=== PATIENT | male | born 1960 | race Caucasian/White ===

== ENCOUNTER 2017-04-14 15:45 | Emergency (ER) | payer SELFPAY ==
[~2017-04-14] VITALS: Ht 180.3 cm; Wt 100.0 kg
[2017-04-14 15:46] VITALS: BP 137/82; PULSE 99; RESP 18; TEMP 98.7; O2SAT 99
[2017-04-14] MEDS ORDERED: SODIUM CHLOR 0.9% 1000 ML INJ 1,000 ML IV SCH (19:58)
[2017-04-14] MEDS ORDERED: ONDANSETRON HCL 4 MG/2 ML VIAL IVP ONE (20:00)
[2017-04-14] MEDS ORDERED: MORPHINE SULFATE 8 MG/ML INJ IV PUSH ONE (20:00)
[2017-04-14] MEDS ORDERED: SODIUM CHLORIDE 0.9% FLUSH 10 ML FLUSH IV FLUSH PRN (20:00)
--- NOTE | 2017-04-14 20:08 | PD ---
HPI Chief Complaint: Abdominal Pain Time Seen by Provider: 19:52 Travel History International Travel<30 days: No Contact w/Intl Traveler<30days: No Traveled to known affect area: No History of Present Illness HPI 57-year-old male here for evaluation of left lower quadrant abdominal pain. Patient reports that the pain started yesterday, sharp, constant, worsening since yesterday, moderate to severe in intensity, worse with movement and palpation. He reports feeling feverish yesterday evening. He has had some loose bowel movements. No nausea or vomiting. No history of abdominal surgeries. No urinary symptoms. [facility] Past Medical History Cardiovascular Problems: Yes Hypertension: Yes Social History Alcohol Use: Yes Tobacco Use: No Substance Use: Yes (marijuana) Allergies-Medications (Allergen,Severity, Reaction): Coded Allergies: No Known Allergies (Unverified , 04/14/17) Reported Meds & Prescriptions Reported Meds & Active Scripts Active Flagyl (Metronidazole) 500 Mg Tab 500 Mg PO BID 10 Days Cipro (Ciprofloxacin HCl) 500 Mg Tab 500 Mg PO BID 10 Days Review of Systems Except as stated in HPI: all other systems reviewed are Neg Physical Exam Narrative GENERAL: Well-developed, well-nourished, no apparent distress. SKIN: Focused skin assessment warm/dry. No rash. HEAD: Atraumatic. Normocephalic. EYES: Pupils equal and round. No scleral icterus. No injection or drainage. ENT: Mucous membranes pink and moist. NECK: Trachea midline. No JVD. CARDIOVASCULAR: Regular rate and rhythm. No murmur appreciated. RESPIRATORY: No accessory muscle use. Clear to auscultation. Breath sounds equal bilaterally. GASTROINTESTINAL: Abdomen soft, nondistended. Moderate left lower quadrant tenderness without peritoneal signs. Rest of abdomen is soft and nontender. Normal bowel sounds. No hernias. MUSCULOSKELETAL: No obvious deformities. No clubbing. No cyanosis. No edema. NEUROLOGICAL: Awake and alert. No obvious cranial nerve deficits. Motor grossly within normal limits. Normal speech. PSYCHIATRIC: Appropriate mood and affect; insight and judgment normal. Data Data Last Documented VS Vital Signs Date Time Temp Pulse Resp B/P Pulse Ox O2 Delivery O2 Flow Rate FiO2 04/14/17 15:46 98.7 99 18 137/82 99 Room Air Orders Complete Blood Count With Diff (04/14/17 19:58) Comprehensive Metabolic Panel (04/14/17 19:58) Lipase (04/14/17 19:58) Prothrombin Time / Inr (Pt) (04/14/17 19:58) Act Partial Throm Time (Ptt) (04/14/17 19:58) Urinalysis - C+S If Indicated (04/14/17 19:58) Ct Abd/Pel W Iv Contrast(Rout) (04/14/17 19:58) Iv Access Insert/Monitor (04/14/17 19:58) Ecg Monitoring (04/14/17 19:58) Oximetry (04/14/17 19:58) Ondansetron Inj (Zofran Inj) (04/14/17 20:00) Sodium Chlor 0.9% 1000 Ml Inj (Ns 1000 M (04/14/17 19:58) Sodium Chloride 0.9% Flush (Ns Flush) (04/14/17 20:00) Morphine Inj (Morphine Inj) (04/14/17 20:00) Iohexol 350 Inj (Omnipaque 350 Inj) (04/14/17 21:23) Ciprofloxacin (Cipro) (04/14/17 21:45) Metronidazole (Flagyl) (04/14/17 21:45) Labs Laboratory Tests Test 04/14/17 04/14/17 20:10 20:16 White Blood Count 12.5 TH/MM3 Red Blood Count 4.91 MIL/MM3 Hemoglobin 15.0 GM/DL Hematocrit 44.0 % Mean Corpuscular Volume 89.7 FL Mean Corpuscular Hemoglobin 30.6 PG Mean Corpuscular Hemoglobin 34.1 % Concent Red Cell Distribution Width 13.0 % Platelet Count 222 TH/MM3 Mean Platelet Volume 9.2 FL Neutrophils (%) (Auto) 68.4 % Lymphocytes (%) (Auto) 20.6 % Monocytes (%) (Auto) 9.8 % Eosinophils (%) (Auto) 0.3 % Basophils (%) (Auto) 0.9 % Neutrophils # (Auto) 8.5 TH/MM3 Lymphocytes # (Auto) 2.6 TH/MM3 Monocytes # (Auto) 1.2 TH/MM3 Eosinophils # (Auto) 0.0 TH/MM3 Basophils # (Auto) 0.1 TH/MM3 CBC Comment AUTO DIFF Differential Total Cells 100 Counted Neutrophils % (Manual) 77 % Band Neutrophils % 1 % Lymphocytes % 11 % Monocytes % 8 % Neutrophils # (Manual) 10.1 TH/MM3 Metamyelocytes 1 % Myelocytes 1 % Promyelocytes 1 % Differential Comment FINAL DIFF MANUAL Platelet Estimate NORMAL Platelet Morphology Comment NORMAL Red Cell Morphology Comment NORMAL Prothrombin Time 10.6 SEC Prothromb Time International 1.0 RATIO Ratio Activated Partial 30.3 SEC Thromboplast Time Sodium Level 137 MEQ/L Potassium Level 4.0 MEQ/L Chloride Level 104 MEQ/L Carbon Dioxide Level 27.3 MEQ/L Anion Gap 6 MEQ/L Blood Urea Nitrogen 10 MG/DL Creatinine 1.29 MG/DL Estimat Glomerular Filtration 58 ML/MIN Rate Random Glucose 123 MG/DL Calcium Level 8.9 MG/DL Total Bilirubin 0.6 MG/DL Aspartate Amino Transf 7 U/L (AST/SGOT) Alanine Aminotransferase 24 U/L (ALT/SGPT) Alkaline Phosphatase 64 U/L Total Protein 7.4 GM/DL Albumin 3.2 GM/DL Lipase 99 U/L Urine Color YELLOW Urine Turbidity CLEAR Urine pH 5.5 Urine Specific [place] 1.026 Urine Protein TRACE mg/dL Urine Glucose (UA) NEG mg/dL Urine Ketones NEG mg/dL Urine Occult Blood NEG Urine Nitrite NEG Urine Bilirubin NEG Urine Urobilinogen 2.0 MG/DL Urine Leukocyte Esterase NEG Urine RBC LESS THAN 1 /hpf Urine WBC 2 /hpf Urine Mucus FEW /lpf Microscopic Urinalysis Comment CULT NOT INDICATED MDM Medical Decision Making Medical Screen Exam Complete: Yes Emergency Medical Condition: Yes Differential Diagnosis Diverticulitis, colitis, appendicitis, cystitis, UTI, nephrolithiasis, ureterolithiasis, abscess Narrative Course Vital signs reviewed. CBC is essentially unremarkable. CMP is unremarkable. Lipase 99. UA is not suggestive of UTI. CT abdomen pelvis: CONCLUSION: Prematurely changes descending colon level the iliac crest consistent with diverticulitis without abscess. Patient was made aware of all findings. He is resting comfortably. No peritoneal signs on exam. He was given a dose of oral Cipro and Flagyl and will be treated as an outpatient with these antibiotics. He is stable for outpatient treatment and follow-up with a primary care physician this week. He was informed on when to return to the emergency department. He verbalizes understanding and agreement with plan. Diagnosis Primary Impression: Diverticulitis Qualified Code: K57.32 - Diverticulitis of large intestine without perforation or abscess without bleeding Referrals: Primary Care Physician 3 days Additional Instructions: Follow-up with a primary care physician this week. Take antibiotics as prescribed. Return to the emergency department for worsening symptoms or any other concerns. Scripts Hydrocodone-Acetaminophen (Lortab)10-325 Mg Tab1 Tab PO Q6H PRN (PAIN) #12 TAB Ref 0 Prov:Сергей Gao MD 04/14/17 Metronidazole (Flagyl)500 Mg [id number] Mg PO BID 10 Days Ref 0 Prov:Сергей Gao MD 04/14/17 Ciprofloxacin (Cipro)500 Mg [id number] Mg PO BID 10 Days Ref 0 Prov:Сергей Gao MD 04/14/17 Disposition: 01 DISCHARGE HOME Condition: Stable Сергей Gao MD Apr 14, 2017 20:08
[2017-04-14 20:54] LABS: AUTOMATED NEUTROPHIL # 8.5 TH/MM3 (1.8-7.7); BASOPHIL # 0.1 TH/MM3 (0-0.2); BASOPHIL % 0.9 % (0.0-2.0); EOSINOPHIL % 0.3 % (0.0-4.0); LYMPH % 20.6 % (9.0-44.0); LYMPHOCYTE # 2.6 TH/MM3 (1.0-4.8); MEAN CELL VOLUME 89.7 FL (80.0-100.0); MEAN CORPUSCULAR HEMOGLOBIN 30.6 PG (27.0-34.0); MEAN CORPUSCULAR HGB CONC 34.1 % (32.0-36.0); MONO % 9.8 % (0.0-8.0); NEUT % 68.4 % (16.0-70.0); PLATELET COUNT 222 TH/MM3 (150-450); RED BLOOD COUNT 4.91 MIL/MM3 (4.50-5.90); WHITE BLOOD COUNT 12.5 TH/MM3 (4.0-11.0)
[2017-04-14 20:59] LABS: HEMO FLAGS AUTO DIFF
[2017-04-14 21:07] LABS: APTT (PATIENT) 30.3 SEC (24.3-30.1); PROTHROMBIN TIME - PATIENT 10.6 SEC (9.8-11.6)
[2017-04-14 21:08] LABS: BLOOD, URINE NEG (NEG); COMMENT (UR) CULT NOT INDICATED; CULTURE IF INDICATED CULT NOT INDICATED; GLUCOSE,URINE NEG (NEG); KETONE, URINE NEG (NEG); MUCUS URINE FEW /lpf (OCC); NITRITE,URINE NEG (NEG); PH, URINE 5.5 (5.0-8.5); URINE COLOR YELLOW (YELLW/STRAW)
[2017-04-14 21:16] LABS: ANION GAP 6 MEQ/L (5-15); AST (GOT) 7 U/L (15-37); BICARBONATE 27.3 MEQ/L (21.0-32.0); BLOOD UREA NITROGEN 10 MG/DL (7-18); CHLORIDE 104 MEQ/L (98-107); GLOMERULAR FILTRATION RATE 58 ML/MIN (>89); SODIUM (NA) 137 MEQ/L (136-145)
[2017-04-14 21:17] LABS: ALT (GPT) 24 U/L (12-78)
[2017-04-14 21:19] LABS: ALKALINE PHOSPHATASE 64 U/L (45-117); TOTAL BILIRUBIN ADULT 0.6 MG/DL (0.2-1.0)
[2017-04-14] MEDS ORDERED: IOHEXOL 350 MG/ML 10 ML VIAL (for RAD DIAG) IV ONE (21:23)
--- NOTE | 2017-04-14 21:24 | RADRPT ---
EXAM DATE/TIME: 04/14/2017 21:03 [place] COMPARISON: No previous studies available for comparison. INDICATIONS : Right lower quadrant pain. IV CONTRAST: 90 cc Omnipaque 350 (iohexol) IV ORAL CONTRAST: No oral contrast ingested. RADIATION DOSE: 10.43 CTDIvol (mGy) MEDICAL HISTORY : Cardiovascular disease. SURGICAL HISTORY : None. ENCOUNTER: Initial ACUITY: 1 day PAIN SCALE: 8/10 LOCATION: Right lower quadrant TECHNIQUE: Volumetric scanning of the abdomen and pelvis was performed. Using automated exposure control and ad justment of the mA and/or kV according to patient size, radiation dose was kept as low as reasonably achievable to obtain optimal diagnostic quality images. DICOM format image data is available electro nically for review and comparison. FINDINGS: LOWER LUNGS: The visualized lower lungs are clear. LIVER: Homogeneous density without lesion. There is no dilation of the biliary tree. No calcified gallston es. SPLEEN: Normal size without lesion. PANCREAS: Within normal limits. KIDNEYS: Normal in size and shape. There is no mass, stone or hydronephrosis. ADRENAL GLANDS: Within normal limits. VASCULAR: There is no aortic aneurysm. BOWEL/MESENTERY: Moderate inflammatory changes are seen along the left descending colon consistent with diverticulitis without abscess. ABDOMINAL WALL: Within normal limits. RETROPERITONEUM: There is no lymphadenopathy. BLADDER: No wall thickening or mass. REPRODUCTIVE: Within normal limits. INGUINAL: There is no lymphadenopathy or hernia. MUSCULOSKELETAL: Within normal limits for patient age. CONCLUSION: Prematurely changes descending colon level the iliac crest consistent with diverticulitis without abs cess. Maikel Crockett MD FACR on April 14, 2017 at 21:21 Board Certified Radiologist. This report was verified electronically.
[2017-04-14] MEDS ORDERED: CIPROFLOXACIN 500 MG TAB PO ONE (21:45)
[2017-04-14] MEDS ORDERED: metroNIDAZOLE 500 MG TAB PO ONE (21:45)
[2017-04-14 21:48] LABS: BANDS 1 % (0-6); METAMYELOCYTES 1 % (0-1); MYELOCYTES 1 % (0-0); NEUTROPHIL # MANUAL DIFF 10.1 TH/MM3 (1.8-7.7); POLYS (SEG NEUTROPHILS) 77 % (16-70); PROMYELOCYTES 1 % (0-0); WBC DIFF SAMPLE 100
[2017-04-14 21:49] LABS: PLATELET ESTIMATE SMEAR NORMAL (NORMAL); PLATELET MORPHOLOGY NORMAL (NORMAL); SCAN/DIFF FINAL DIFF MANUAL
[2017-04-14] MEDS ORDERED: METR-1 PO (21:50)
[2017-04-14] MEDS ORDERED: CIPR-9 PO (21:50)
[2017-04-14] MEDS ORDERED: HYDR-3535 PO (22:04)
== END 2017-04-14 22:15 | disposition home or self-care (01) ==
LOC: NEPD 15:45
DX: K57.32 Diverticulitis of large intestine without perforation or abscess without bleeding (principal); R50.9 Fever, unspecified; I10 Essential (primary) hypertension
CPT/HCPCS: 74177; 80053; 81001; 83690; 85007; 85027; 85610; 85730; 96374; 96375; 99285; J2270; J2405; J7030; Q9967